=== PATIENT | male | born 1955 | race Two or more races ===

== ENCOUNTER 2021-07-08 13:49 | Inpatient (IN) | payer OTHER ==
[~2021-07-08] VITALS: Ht 167.6 cm; Wt 80.2 kg
[2021-07-08 16:35] LABS: BASOPHILS % (AUTO) 1.9 % (0.0-2.0); HEMATOCRIT 33.1 % (41-53); HEMOGLOBIN 11.1 g/dL (13.5-17.5); LYMPHOCYTES # (AUTO) 2.4 K/uL (1.0-4.8); LYMPHOCYTES % (AUTO) 43.1 % (22.0-44.0); MEAN CORPUSCULAR HEMOGLOBIN 32.4 pg (26.0-34.0); MEAN CORPUSCULAR HGB CONC 33.5 G/dL (31.0-37.0); MEAN CORPUSCULAR VOLUME 97 fL (80-100); MONOCYTES # (AUTO) 0.4 K/uL (0.1-1.0); MONOCYTES % (AUTO) 7.4 % (2.0-9.0); NEUTROPHILS # (AUTO) 2.5 K/uL (1.8-7.7); NEUTROPHILS % (AUTO) 43.6 % (40.0-70.0); PLATELET COUNT (AUTO) 254 K/uL (150-450); RED BLOOD CELL COUNT(AUTO) 3.43 MIL/uL (4.50-5.90); RED CELL DISTRIBUTION WIDTH 13.8 % (11.5-14.5)
[2021-07-08 16:48] LABS: CALCIUM, TOTAL 9.5 mg/dL (8.8-10.5); CREATININE 10.82 mg/dL (0.60-1.30); POTASSIUM 5.1 mmol/L (3.5-5.1)
[2021-07-08 16:54] LABS: BILIRUBIN,TOTAL 0.6 mg/dL (0.1-1.0); TOTAL PROTEIN, SERUM 8.4 g/dL (6.4-8.2)
[2021-07-08] MEDS ORDERED: DOXYCYCLINE HYCLATE 100 MG in DEXTROSE 5%-WATER 100 ML IV ONE (17:30)
[2021-07-08] MEDS ORDERED: CefTRIAXone 1 GM/DEXTROSE 50 ML IV ONE (17:30)
[2021-07-08] MEDS ORDERED: ACETAMINOPHEN 325 MG TABLET PO PRN (20:15)
[2021-07-08] MEDS ORDERED: ONDANSETRON HCL 4 MG/2 ML VIAL IVP PRN (20:15)
[2021-07-08 20:47] LABS: COVID AG,FIA SOURCE NASOPHARYNGEAL
[2021-07-08 23:03] VITALS: BP 160/90
[2021-07-08] MEDS: HEPARIN SODIUM,PORCINE 5,000 UNITS/ML VIAL SQ SCH (23:49)
[2021-07-09] MEDS: MELATONIN 3 MG TABLET PO PRN ×2 (00:13→21:43)
[2021-07-09 04:54] VITALS: BP 116/69
[2021-07-09 07:30] VITALS: BP 135/71
[2021-07-09] MEDS: HEPARIN SODIUM,PORCINE 5,000 UNITS/ML VIAL SQ SCH ×3 (09:22→23:02)
[2021-07-09 12:00] VITALS: BP 143/67
[2021-07-09] MEDS: SEVELAMER CARBONATE 800 MG TABLET PO SCH ×2 (13:52→18:07)
[2021-07-09 16:45] VITALS: BP 140/80
[2021-07-09] MEDS: CefTRIAXone 1 GM/DEXTROSE 50 ML IV SCH (17:20)
[2021-07-09 20:45] VITALS: BP 137/75
[2021-07-10] VITALS (7 sets, daily range): BP systolic 125–163; BP diastolic 67–88
[2021-07-10] MEDS: SEVELAMER CARBONATE 800 MG TABLET PO SCH ×3 (08:00→20:05)
[2021-07-10] MEDS: HEPARIN SODIUM,PORCINE 5,000 UNITS/ML VIAL SQ SCH ×2 (08:00→16:00)
[2021-07-10 13:54] LABS: BASOPHILS % (AUTO) 1.1 % (0.0-2.0); EOSINOPHILS % (AUTO) 6.4 % (1.0-6.0); HEMATOCRIT 36.3 % (41-53); HEMOGLOBIN 12.1 g/dL (13.5-17.5); LYMPHOCYTES % (AUTO) 25.9 % (22.0-44.0); MEAN CORPUSCULAR HEMOGLOBIN 32.6 pg (26.0-34.0); MEAN CORPUSCULAR HGB CONC 33.3 G/dL (31.0-37.0); MEAN CORPUSCULAR VOLUME 98 fL (80-100); MONOCYTES # (AUTO) 0.3 K/uL (0.1-1.0); MONOCYTES % (AUTO) 6.8 % (2.0-9.0); NEUTROPHILS # (AUTO) 2.3 K/uL (1.8-7.7); NEUTROPHILS % (AUTO) 59.8 % (40.0-70.0); PLATELET COUNT (AUTO) 254 K/uL (150-450); RED CELL DISTRIBUTION WIDTH 13.5 % (11.5-14.5)
[2021-07-10] MEDS ORDERED: SODIUM CHLORIDE 0.9% 2,000 ML ONE (14:04)
[2021-07-10 14:09] LABS: CALCIUM, TOTAL 9.1 mg/dL (8.8-10.5); CREATININE 12.04 mg/dL (0.60-1.30); POTASSIUM 4.7 mmol/L (3.5-5.1)
[2021-07-10] MEDS: CefTRIAXone 1 GM/DEXTROSE 50 ML IV SCH (20:05)
[2021-07-10] MEDS: MELATONIN 3 MG TABLET PO PRN (20:05)
[2021-07-11] MEDS: HEPARIN SODIUM,PORCINE 5,000 UNITS/ML VIAL SQ SCH ×2 (00:16→08:26)
[2021-07-11 03:35] VITALS: BP 135/66
[2021-07-11 07:24] VITALS: BP 147/76
[2021-07-11] MEDS: SEVELAMER CARBONATE 800 MG TABLET PO SCH (08:25)
[2021-07-11] MEDS ORDERED: HEPARIN SODIUM,PORCINE 1,000 UNITS/ML VIAL IVP ONE (10:04)
[2021-07-12 11:42] LABS: GLUCOMETER DEV NAME(LOC) 5N.1C; GLUCOSE,POINT OF CARE 136 MG/DL (70-110)
== END 2021-07-11 10:05 | disposition home or self-care (01) | DRG 466 ==
LOC: EMS 13:49 → EDBD 13:49 → 5N 18:59
PROVIDERS: ADMIT Internal Medicine; ATTEND Internal Medicine
DX: T82.42XA Displacement of vascular dialysis catheter, initial encounter (principal); I12.0 Hypertensive chronic kidney disease with stage 5 chronic kidney disease or end stage renal disease; N18.6 End stage renal disease; J18.9 Pneumonia, unspecified organism; D63.1 Anemia in chronic kidney disease; E11.22 Type 2 diabetes mellitus with diabetic chronic kidney disease; Z20.822 Contact with and (suspected) exposure to COVID-19; Y83.8 Other surgical procedures as the cause of abnormal reaction of the patient, or of later complication, without mention of misadventure at the time of the procedure; Z99.2 Dependence on renal dialysis; Y92.89 Other specified places as the place of occurrence of the external cause
CPT/HCPCS: 71045; 80048; 80053; 82962; 85025; 87340; 90935; 93005; 99285; J0696; J1644; J3490; J7030; J7060; 36415-L1; 36415-TC; U0003